=== PATIENT | female | born 1975 | race Caucasian/White ===

== ENCOUNTER 2022-06-20 02:40 | Emergency (ER) | payer OTHER, SELFPAY ==
[2022-06-20] MEDS: GI COCKTAIL (VISC LIDO/ANTACID) 30 ML PO (02:50)
[2022-06-20] MEDS: ONDANSETRON 2 MG/ML inj 4 MG IVP (02:50)
[2022-06-20 02:55] VITALS: BP 127/79; PULSE 82; RESP 18; TEMP 36.7; O2SAT 98; BMI 355.3
[2022-06-20] MEDS: FAMOTIDINE 10 MG/ML inj 20 MG IVP (02:55)
--- NOTE | 2022-06-20 02:58 | CRLHL7_ITS ---
For Patients: As a result of the Century Cures Act, medical imaging exams and procedure reports are released immediately into your electronic medical record. You may view this report before your referring provider. If you have questions, please contact your health care provider. INDICATION: epigastric pain TECHNIQUE: Ultrasound abdomen limited. Sonographic images of the right upper quadrant were obtained using zepeda-scale and color Doppler images. COMPARISON: None. FINDINGS: Liver: Normal in size with mildly increased echotexture. No suspicious masses. No intrahepatic biliary dilatation. Appropriate direction of blood flow of the portal vein. Gallbladder: Multiple gallstones. Gallbladder wall measures 2.6 mm. No pericholecystic fluid. Negative Valente sign. Common bile duct: 6 mm. Pancreas: Partially obscured by bowel gas artifact. Visualized portions of the body and head appear uniform. Right kidney: Normal in size. Normal echotexture and cortex. No suspicious masses, stones, or hydronephrosis. Vasculature: Proximal abdominal aorta and IVC are unremarkable. IMPRESSION: Cholelithiasis without evidence of acute cholecystitis. CBD upper limits of normal/borderline. Recommend correlation with LFTs if there is concern for obstructive process. Hepatic steatosis. Dictated by Terell Campos MD @ 06/20/2022 5:31:04 AM (Electronically Signed)
--- NOTE | 2022-06-20 03:00 | ED.GENADULT ---
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 Patient describes a history of ?gastritis? but said she has not had prior EGD or other testing for this. She takes omeprazole daily. Patient had worsened pain starting yesterday evening along with nausea, no vomiting. No diarrhea or dark colored stools. She has some medications from [place] which she took, these are IM injections of hyoscyamine and Toradol. She had minimal improvement this. She says sometimes when she gets the pain she takes ibuprofen as well. Prior section but no other surgeries. Related Data Home Medications Medication Instructions Recorded Confirmed No Known Home Medications 06/20/22 06/20/22 Previous Rx's Medication Instructions Recorded ondansetron 4 mg disintegrating 4 mg PO Q6H PRN nausea and 06/20/22 tablet vomiting #20 tabs sucralfate 1 gram tablet (Carafate) 1 g PO QID #28 tabs 06/20/22 Allergies Allergy/AdvReac Type Severity Reaction Status Date / Time No Known Drug Allergies Allergy Verified 06/20/22 03:19 Review of Systems Status of ROS: Reports: 10 or more systems reviewed and unremarkable except as noted in History and below [facility] PFS Medical History (Updated 06/20/22 @ 04:25 by Subhash Ambrose MD) Gastritis Surgical History (Updated 06/20/22 @ 03:15 by Rehan Peñaloza RN) No significant past surgical history Social History Smoking Status: Never smoker Do you use any of these nicotine containing products: None Second hand tobacco smoke exposure: No How often do you have a drink containing alcohol: never How often do you have six or more drinks on one occasion: Never AUDIT-C Alcohol total score: 0 Non-prescribed substance use: denies use Exam Narrative: Exam Narrative: General: Well-developed and well-nourished, no acute distress Head: Atraumatic and normocephalic Eyes: Pupils are equal reactive, extraocular motions intact, conjunctiva clear ENT: External nose and ears are normal, posterior pharynx without erythema or exudate Neck: No midline cervical tenderness, full spontaneous range of motion the neck, trachea midline, no adenopathy Heart: Regular rate and rhythm no murmurs or thrills Lungs: Clear to auscultation bilaterally without wheezes or crackles Abdomen: Soft, epigastric and right upper quadrant tenderness, nondistended with active bowel sounds Musculoskeletal: No tenderness, deformity, or edema Neurologic: Awake, alert, and oriented x3, no gross focal neurologic deficits, cranial nerves intact as tested Psych: Mood and affect are appropriate Skin: No rashes Const: Vital Signs, click to edit/add: Vital Signs - 24 hr 06/20/22 02:55 06/20/22 03:31 06/20/22 04:01 Temperature 98.0 F Pulse Rate 75 77 Pulse Rate [Right Pulse Oximeter] 82 Respiratory Rate 18 16 16 Blood Pressure 116/74 110/74 Blood Pressure [Ri ght Upper Arm] 127/79 Pulse Oximetry 98 96 98 Oxygen Delivery Me thod Room Air 06/20/22 02:55 06/20/22 04:23 06/20/22 04:31 Temperature 98.0 F Pulse Rate 68 Pulse Rate [Right Pulse Oximeter] 79 Respiratory Rate 16 16 Blood Pressure 120/82 Blood Pressure [Ri ght Upper Arm] 120/68 Pulse Oximetry 98 98 98 Oxygen Delivery Me thod Room Air 06/20/22 04:42 Temperature 98.0 F Pulse Rate Pulse Rate [Right Pulse Oximeter] 79 Respiratory Rate 16 Blood Pressure Blood Pressure [Ri ght Upper Arm] 120/68 Pulse Oximetry Oxygen Delivery Me thod Course Course Hospital Course: Patient seen examined, prior records are reviewed. Patient presents with upper abdominal pain, primarily epigastric but wraps around the back. On exam, he has epigastric and mild right upper quadrant tenderness, no left upper quadrant tenderness. Reports history of gastritis. Symptoms certainly seem consistent gastritis although concern also for acute cholecystitis or biliary colic. Labs and right upper quadrant ultrasound are ordered as well as Pepcid and GI cocktail. Reevaluation(s) Reevaluation #1: Labs independently interpreted by me demonstrates normal CBC with normal hemoglobin. Lipase is normal, buttock function panel and basic panel reassuring. Ultrasound is pending. Time: 03:42 Reevaluation #2: Ultrasound demonstrates gallstones but no findings for acute obstruction or acute cholecystitis. Patient is stable for discharge with outpatient follow-up. At time getting discharge instructions started complaining of a painful joints in the mornings. She can follow up with her primary care doctor. I did instruct her to avoid ibuprofen for now due to her gastritis. Time: 04:14 Vital Signs Vital signs: Initial Vital Signs Temperature 98.0 F 06/20/22 02:55 Temperature Source Temporal Artery Scan 06/20/22 02:55 Pulse Rate 82 06/20/22 02:55 Respiratory Rate 18 06/20/22 02:55 Blood Pressure 127/79 06/20/22 02:55 Blood Pressure Mean 95 06/20/22 02:55 Blood Pressure Position Sitting 06/20/22 02:55 Pulse Oximetry 98 06/20/22 02:55 Oxygen Delivery Method 06/20/22 02:55 Vital Signs Temperature 98.0 F 06/20/22 02:55 Pulse Rate 82 06/20/22 02:55 Respiratory Rate 18 06/20/22 02:55 Blood Pressure 127/79 06/20/22 02:55 Pulse Oximetry 98 06/20/22 02:55 Oxygen Delivery Method 06/20/22 02:55 Temperature 98.0 F 06/20/22 04:42 Pulse Rate 79 06/20/22 04:42 Respiratory Rate 16 06/20/22 04:42 Blood Pressure 120/68 06/20/22 04:42 Pulse Oximetry 98 06/20/22 04:31 Oxygen Delivery Method 06/20/22 04:23 Medical Decision Making Medical Records Medical records reviewed: Yes I reviewed the patient's medical records Lab Data Lab results reviewed: Yes I reviewed the patient's lab results Labs: Lab Results 06/20/22 06/20/22 Range/Units 03:05 03:05 WBC 9.71 (4.50-11.00) K/uL RBC 4.28 (4.00-5.20) m/uL Hgb 12.5 (12.0-16.0) gm/dL Hct 37.4 (33.0-51.0) % MCV 87 (80-100) fL MCH 29 (26-34) pg MCHC 33 (32-36) gm/dL RDW Coeff of Aniya 12.9 (11.5-15.5) % Plt Count 225 (140-440) K/uL Neut % (Auto) 75.4 H (42.0-72.0) % Lymph % (Auto) 17.2 L (20-44) % Giles % (Auto) 5.6 (0.0-11.0) % Eos % (Auto) 1.5 (0.0-7.0) % Baso % (Auto) 0.1 (0.0-3.0) % Neut # (Auto) 7.30 H (1.7-7.0) K/uL Lymph # (Auto) 1.70 (0.90-2.90) K/uL Giles # (Auto) 0.50 (0.00-0.90) K/UL Eos # (Auto) 0.15 (0.00-0.50) K/uL Baso # (Auto) 0.01 (0.00-0.30) K/uL Sodium 139 (135-149) mmol/L Potassium 4.7 (3.6-5.1) mmol/L Chloride 110 (96-114) mmol/L Carbon Dioxide 21 (20-32) mmol/L BUN 14 (5-24) mg/dL Creatinine 0.5 (0.5-1.5) mg/dL Estimated Creat Clear 110.01 Estimated GFR 116 ml/min Glucose 133 H (60-115) mg/dL Calcium 8.4 (8.4-10.6) mg/dL Total Bilirubin 0.8 (0.1-1.5) mg/dL Direct Bilirubin 0.5 (0.0-0.5) mg/dL AST 47 H (12-35) U/L ALT 29 (4-35) U/L Alkaline Phosphatase 82 (40-150) U/L Total Protein 7.9 (6.0-8.3) g/dL Albumin 4.2 (3.3-5.0) g/dL Lipase 69 (23-300) U/L Discharge Plan Discharge Clinical Impression: Gastritis Patient Disposition: Home, Self-Care Condition: Stable Instructions: Gastritis (DC) Additional Instructions: Avoid ibuprofen. Take Tylenol for pain. Follow-up in clinic next week- call [phone] for and appointment Continue omeprazole. Evite el ibuprofeno. [place] Tylenol para el dolor. Seguimiento en la cl?annabelle la pr?xima semana: llame al [phone] para leopoldo kimi Contin?e con omeprazol. Activity Level: No Restrictions Discharge Diet: Regular Prescriptions: New sucralfate [Carafate] 1 gram tablet 1 g PO QID Qty: 28 0RF ondansetron 4 mg tablet,disintegrating 4 mg PO Q6H PRN (Reason: nausea and vomiting) Qty: 20 0RF No Action No Known Home Medications Stand Alone Forms: MyHealth Info Instructions
[2022-06-20 03:14] LABS: Basophils Absolute Auto 0.01 K/uL (0.00-0.30); Basophils Percent Auto 0.1 % (0.0-3.0); Eosinophils Absolute Auto 0.15 K/uL (0.00-0.50); Eosinophils Percent Auto 1.5 % (0.0-7.0); Hematocrit 37.4 % (33.0-51.0); Hemoglobin* 12.5 gm/dL (12.0-16.0); Immature Granulocytes Abs Auto 0.02 K/uL (0.00-0.30); Immature Granulocytes Pct Auto 0.2 %; Lymphocytes Percent Auto 17.2 % (20-44); Mean Corpuscular HGB Conc 33 gm/dL (32-36); Mean Corpuscular Hemoglobin 29 pg (26-34); Mean Corpuscular Volume 87 fL (80-100); Monocytes Percent Auto 5.6 % (0.0-11.0); Neutrophils Percent Auto 75.4 % (42.0-72.0); Platelet Count* 225 K/uL (140-440); RDW Coefficient of Variation % 12.9 % (11.5-15.5); Red Blood Count 4.28 m/uL (4.00-5.20); White Blood Count* 9.71 K/uL (4.50-11.00)
[2022-06-20 03:15] LABS: Slide Review Reflex No
[2022-06-20 03:27] LABS: Albumin* 4.2 g/dL (3.3-5.0); Chloride* 110 mmol/L (96-114)
[2022-06-20 03:28] LABS: Potassium* 4.7 mmol/L (3.6-5.1); Sodium* 139 mmol/L (135-149)
[2022-06-20 03:30] LABS: Bilirubin Direct* 0.5 mg/dL (0.0-0.5); Bilirubin Total* 0.8 mg/dL (0.1-1.5); Blood Urea Nitrogen* 14 mg/dL (5-24); Carbon Dioxide* 21 mmol/L (20-32); Creatinine* 0.5 mg/dL (0.5-1.5); Est. Creatinine Clearance* 110.01; Estimated Glomerular Filt Rate 116 ml/min; Total Protein* 7.9 g/dL (6.0-8.3)
[2022-06-20 03:31] VITALS: BP 116/74; PULSE 75; RESP 16; O2SAT 96
[2022-06-20 03:31] LABS: Alanine Aminotransferase* 29 U/L (4-35); Alkaline Phosphatase* 82 U/L (40-150); Aspartate Amino Transferase* 47 U/L (12-35); Calcium* 8.4 mg/dL (8.4-10.6); Glucose* 133 mg/dL (60-115); Lipase* 69 U/L (23-300)
[2022-06-20 04:01] VITALS: BP 110/74; PULSE 77; RESP 16; O2SAT 98
[2022-06-20 04:23] VITALS: BP 120/68; PULSE 79; RESP 16; TEMP 36.7; O2SAT 98
[2022-06-20 04:31] VITALS: BP 120/82; PULSE 68; RESP 16; O2SAT 98
[2022-06-20 04:42] VITALS: BP 120/68; PULSE 79; RESP 16; TEMP 36.7
== END 2022-06-20 04:42 | disposition home or self-care (01) ==
PROVIDERS: Emergency Provider Family Medicine
DX: K29.70 Gastritis, unspecified, without bleeding (principal)
CPT/HCPCS: 36415; 76705; 80048; 80076; 83690; 85025; 94761; 96374; 96375; 99283; 99284; A9270; J2405; S0028

== ENCOUNTER 2022-06-21 20:25 | Day surgery (SDC) | payer OTHER, SELFPAY ==
[2022-06-21] VITALS (14 sets, daily range): BP systolic 119–132; BP diastolic 81–94; PULSE 77–86; RESP 18–20; TEMP 35.8; O2SAT 94–96
[2022-06-21] MEDS: HYDROCODONE-ACETAMIN 5-325 MG 1 TAB PO (21:05)
[2022-06-21 21:12] LABS: Basophils Absolute Auto 0.02 K/uL (0.00-0.30); Basophils Percent Auto 0.2 % (0.0-3.0); Eosinophils Absolute Auto 0.27 K/uL (0.00-0.50); Eosinophils Percent Auto 3.1 % (0.0-7.0); Hematocrit 34.7 % (33.0-51.0); Hemoglobin* 11.8 gm/dL (12.0-16.0); Immature Granulocytes Abs Auto 0.01 K/uL (0.00-0.30); Immature Granulocytes Pct Auto 0.1 %; Lymphocytes Absolute Auto 1.72 K/uL (0.90-2.90); Mean Corpuscular HGB Conc 34 gm/dL (32-36); Mean Corpuscular Hemoglobin 29 pg (26-34); Mean Corpuscular Volume 86 fL (80-100); Monocytes Percent Auto 7.1 % (0.0-11.0); Neutrophils Absolute Auto 5.96 K/uL (1.7-7.0); Neutrophils Percent Auto 69.5 % (42.0-72.0); Platelet Count* 264 K/uL (140-440); RDW Coefficient of Variation % 12.9 % (11.5-15.5); Red Blood Count 4.03 m/uL (4.00-5.20); White Blood Count* 8.59 K/uL (4.50-11.00)
[2022-06-21 21:22] LABS: Slide Review Reflex No
[2022-06-21 21:24] LABS: Albumin* 4.2 g/dL (3.3-5.0); Chloride* 104 mmol/L (96-114); Sodium* 136 mmol/L (135-149)
[2022-06-21 21:25] LABS: Potassium* 3.6 mmol/L (3.6-5.1)
[2022-06-21 21:26] LABS: Creatinine* 0.5 mg/dL (0.5-1.5); Estimated Glomerular Filt Rate 116 ml/min
[2022-06-21 21:27] LABS: Alanine Aminotransferase* 38 U/L (4-35); Alkaline Phosphatase* 91 U/L (40-150); Aspartate Amino Transferase* 45 U/L (12-35); Bilirubin Direct* 0.2 mg/dL (0.0-0.5); Bilirubin Total* 0.5 mg/dL (0.1-1.5); Blood Urea Nitrogen* 14 mg/dL (5-24); Carbon Dioxide* 25 mmol/L (20-32); Glucose* 158 mg/dL (60-115); Lipase* 152 U/L (23-300); Total Protein* 7.9 g/dL (6.0-8.3)
[2022-06-21 21:28] LABS: Calcium* 8.4 mg/dL (8.4-10.6)
--- NOTE | 2022-06-21 21:38 | ED_ITS ---
HPI - General Adult General Chief complaint: Abdominal Pain Stated complaint: stomach pain Time Seen by Provider: 06/21/22 20:27 Source: patient Mode of arrival: ambulatory Limitations: no limitations History of Present Illness HPI narrative: 46-year-old female coming in today complaining of abdominal pain. Patient states that the pain is located in the epigastric region radiates to the right upper quadrant. Patient was here yesterday with the same concern was sent home with Carafate and omeprazole. Patient states she has been taking the Carafate every 6 hours and the pain has been fine until 2 hours ago when it returned. The pain is strong enough to take her breath away. She denies any nausea or vomiting. No fevers or chills. She does believe that every time she eats her pain does get a little bit worse, and then subsides with time. During her evaluation yesterday she was found to have cholelithiasis without evidence of cholecystitis. She states she has been having this pain on and off for quite some time. Related Data Home Medications Medication Instructions Recorded Confirmed No Known Home Medications 06/20/22 06/20/22 Previous Rx's Medication Instructions Recorded ondansetron 4 mg disintegrating 4 mg PO Q6H PRN nausea and 06/20/22 tablet vomiting #20 tabs sucralfate 1 gram tablet (Carafate) 1 g PO QID #28 tabs 06/20/22 Allergies Allergy/AdvReac Type Severity Reaction Status Date / Time No Known Drug Allergies Allergy Verified 06/20/22 03:19 Review of Systems Status of ROS: Reports: 10 or more systems reviewed and unremarkable except as noted in History and below [facility] Medical History Gastritis Surgical History No significant past surgical history Social History Smoking Status: Never smoker Do you use any of these nicotine containing products: None Second hand tobacco smoke exposure: No How often do you have a drink containing alcohol: never How often do you have six or more drinks on one occasion: Never AUDIT-C Alcohol total score: 0 Non-prescribed substance use: denies use Exam Narrative: Exam Narrative: Well-nourished well-developed patient in no acute distress. Alert and oriented. Answers questions appropriately. Mood and affect are appropriate. Thoughts are goal oriented and rational. No tangential or magical thinking noted. Patient speaks in full sentences without needing to catch their breath. HEENT: Normocephalic atraumatic. Pupils are equally round reactive to light. Extraocular muscles are intact. Conjunctivae are moist without any icterus noted. Moist mucous membranes. Posterior pharynx is normal. Neck is soft . Cardiovascular: Heart is regular rate and rhythm S1 and S2 are present without any murmurs. Lungs: Clear to auscultation bilaterally no wheezes rhonchi or rales are appreciated. Patient takes deep breaths without any discomfort. Abdomen: Soft and nondistended. She does have mild epigastric discomfort. She has a positive Valente sign and acute right upper quadrant tenderness. Normal bowel sounds. Extremities: Bilateral lower extremities are without edema. Skin: Well perfused without any obvious rashes. Const: Vital Signs, click to edit/add: Vital Signs - 24 hr 06/21/22 20:34 Temperature 96.4 F L Pulse Rate [Left P ulse Oximeter] 82 Respiratory Rate 18 Blood Pressure [Le ft Upper Arm] 132/88 Pulse Oximetry 96 Oxygen Delivery Me thod Room Air Course Course Hospital Course: Did repeat her blood work to make sure that there was no evidence of developing cholecystitis or other abnormalities such as pancreatitis. Her lab work was unremarkable. Vital Signs Vital signs: Initial Vital Signs Temperature 96.4 F L 06/21/22 20:34 Temperature Source Temporal Artery Scan 06/21/22 20:34 Pulse Rate 82 06/21/22 20:34 Pulse Rhythm 06/21/22 20:34 Respiratory Rate 18 06/21/22 20:34 Blood Pressure 132/88 06/21/22 20:34 Blood Pressure Mean 102 06/21/22 20:34 Blood Pressure Position Semi-Fowlers 06/21/22 20:34 Pulse Oximetry 96 06/21/22 20:34 Oxygen Delivery Method 06/21/22 20:34 Vital Signs Temperature 96.4 F L 06/21/22 20:34 Pulse Rate 82 06/21/22 20:34 Respiratory Rate 18 06/21/22 20:34 Blood Pressure 132/88 06/21/22 20:34 Pulse Oximetry 96 06/21/22 20:34 Oxygen Delivery Method 06/21/22 20:34 Temperature 96.4 F L 06/21/22 20:34 Pulse Rate 82 06/21/22 20:34 Respiratory Rate 18 06/21/22 20:34 Blood Pressure 132/88 06/21/22 20:34 Pulse Oximetry 96 06/21/22 20:34 Oxygen Delivery Method 06/21/22 20:34 Medical Decision Making MDM Narrative Medical decision making narrative: 46-year-old female with epigastric and right upper quadrant abdominal pain, recurrent and after eating. I do think she needs to have an appointment with General surgery to discuss the potential of a cholecystectomy. In the meantime will send her home with hydrocodone to take as needed. We discussed bland diet. We discussed signs of infection reasons for follow-up. Patient was agreeable and had no other questions. Lab Data Lab results reviewed: Yes I reviewed the patient's lab results Labs: Lab Results 06/21/22 06/21/22 Range/Units 21:04 21:04 WBC 8.59 (4.50-11.00) K/uL RBC 4.03 (4.00-5.20) m/uL Hgb 11.8 L (12.0-16.0) gm/dL Hct 34.7 (33.0-51.0) % MCV 86 (80-100) fL MCH 29 (26-34) pg MCHC 34 (32-36) gm/dL RDW Coeff of Aniya 12.9 (11.5-15.5) % Plt Count 264 (140-440) K/uL Neut % (Auto) 69.5 (42.0-72.0) % Lymph % (Auto) 20.0 (20-44) % Norton % (Auto) 7.1 (0.0-11.0) % Eos % (Auto) 3.1 (0.0-7.0) % Baso % (Auto) 0.2 (0.0-3.0) % Neut # (Auto) 5.96 (1.7-7.0) K/uL Lymph # (Auto) 1.72 (0.90-2.90) K/uL Norton # (Auto) 0.60 (0.00-0.90) K/UL Eos # (Auto) 0.27 (0.00-0.50) K/uL Baso # (Auto) 0.02 (0.00-0.30) K/uL Sodium 136 (135-149) mmol/L Potassium 3.6 (3.6-5.1) mmol/L Chloride 104 (96-114) mmol/L Carbon Dioxide 25 (20-32) mmol/L BUN 14 (5-24) mg/dL Creatinine 0.5 (0.5-1.5) mg/dL Estimated GFR 116 ml/min Glucose 158 H (60-115) mg/dL Calcium 8.4 (8.4-10.6) mg/dL Total Bilirubin 0.5 (0.1-1.5) mg/dL Direct Bilirubin 0.2 (0.0-0.5) mg/dL AST 45 H (12-35) U/L ALT 38 H (4-35) U/L Alkaline Phosphatase 91 (40-150) U/L Total Protein 7.9 (6.0-8.3) g/dL Albumin 4.2 (3.3-5.0) g/dL Lipase 152 (23-300) U/L Discharge Plan Discharge Clinical Impression: Cholelithiasis Patient Disposition: Home, Self-Care Condition: Stable Additional Instructions: You will need to follow-up with general surgery to discuss getting your gallbladder removed. I do recommend that you eat a very bland diet in the meantime. Anything with fat such as animal products, fried foods, or butter can cause the gallbladder to contract more and can cause pain. If you develop vomiting, pain that does not get better with time or fever you should return to the emergency room right away. [facility] meds sent to [facility]. Prescriptions: No Action No Known Home Medications sucralfate [Carafate] 1 gram tablet 1 g PO QID Qty: 28 0RF ondansetron 4 mg tablet,disintegrating 4 mg PO Q6H PRN (Reason: nausea and vomiting) Qty: 20 0RF Follow Up/Referrals: Provider,Not a Local [Primary Care Provider] - Stand Alone Forms: MyHealth Info Instructions
[2022-06-21 21:41] LABS: C Reactive Protein* 18.1 mg/dL (0.5-1.0)
[2022-06-21] MEDS: HYDROmorphone 0.5 mg/0.5 ml inj IVP ×2 (22:24→22:47)
[2022-06-21 22:43] LABS: SARS PCR* Negative SARS-CoV-2 (Negative)
--- NOTE | 2022-06-21 22:52 | P.IMHP_ITS ---
Hospitalist- H&P: HPI History of Present Illness Date Seen: 06/21/22 Chief complaint: stomach pain Narrative: Awilda Kang is a 46 year old female who presents to emergency room with her for persistent epigastric pain that radiates into bilateral upper quadrants of the abdomen. She has noted this pain on and off for quite some time, it has been more persistent in the past 48 hours. Pain is worse after eating and drinking, no other alleviating or aggravating factors. No fevers. No itching or skin rashes. Intermittent nausea but no vomiting. She was seen in the ED yesterday, started on medications for gastritis, but symptoms persisted. She was found to have gallstones on abdominal ultrasound yesterday. In the ED, she required IV Dilaudid for pain control. Given persistent symptoms, in addition to elevated CRP today, she's admitted to the hospital for cholecystectomy with Dr. Caal of General Surgery tomorrow. Awilda is from [place], has been in [place] for the past 6 months. She is generally healthy and takes no daily prescription medications. She has had 3 C-Sections, no other surgeries. Review of Systems Status of ROS: Reports: 10 or more systems reviewed and unremarkable except as noted in History and below [facility] Medical History (Updated 06/21/22 @ 23:05 by Patti Pedraza MD) Gastritis Surgical History (Updated 06/21/22 @ 23:01 by Patti Pedraza MD) History of section No significant past surgical history Social History (Updated 06/21/22 @ 23:06 by Patti Pedraza MD) Narrative: Originally from [place], 3 children. Lives with in [place]. Nonsmoker, no ETOH. Smoking Status: Never smoker Do you use any of these nicotine containing products: None Second hand tobacco smoke exposure: No How often do you have a drink containing alcohol: never How often do you have six or more drinks on one occasion: Never AUDIT-C Alcohol total score: 0 Non-prescribed substance use: denies use Meds Home Medications and Allergies Home Medications Medication Instructions Recorded Confirmed Type No Known Home Medications 06/20/22 06/20/22 History Allergies Allergy/AdvReac Type Severity Reaction Status Date / Time No Known Drug Allergies Allergy Verified 06/20/22 03:19 Exam Narrative: Exam Narrative: GEN: Alert and oriented, nontoxic in appearance HEENT: EOMIs bilaterally, no scleral icterus CV: RRR, No concerning murmurs, rubs, or gallops R: LCTA bilaterally without concerning wheezing, rales, or rhonchi Ab: + tenderness to palpation over right upper quadrant, no masses Ext: wwp, no concerning edema Skin: No concerning skin lesions or rashes on exposed skin Neuro: Nonfocal Psych: Appropriate Const: Vital Signs, click to edit/add: Vital Signs - 24 hr 06/21/22 20:34 06/21/22 21:44 06/21/22 21:45 Temperature 96.4 F L Pulse Rate 78 81 Pulse Rate [Left P ulse Oximeter] 82 Respiratory Rate 18 Blood Pressure Blood Pressure [Le ft Upper Arm] 132/88 Pulse Oximetry 96 95 94 Oxygen Delivery [facility] Room Air Room Air 06/21/22 22:00 06/21/22 22:03 06/21/22 22:15 Temperature Pulse Rate 80 79 77 Pulse Rate [Left P ulse Oximeter] Respiratory Rate Blood Pressure 122/94 H Blood Pressure [Le ft Upper Arm] Pulse Oximetry 96 95 [facility] 06/21/22 22:30 Temperature Pulse Rate 79 Pulse Rate [Left P ulse Oximeter] Respiratory Rate Blood Pressure Blood Pressure [Le ft Upper Arm] Pulse Oximetry 95 [facility] - H&P: Result Labs Labs: Short CBC 06/21/22 Range/Units 21:04 WBC 8.59 (4.50-11.00) K/uL Hgb 11.8 L (12.0-16.0) gm/dL Hct 34.7 (33.0-51.0) % Plt Count 264 (140-440) K/uL BMP 06/21/22 21:04 Sodium 136 Potassium 3.6 Chloride 104 Carbon Dioxide 25 BUN 14 Creatinine 0.5 Glucose 158 H Calcium 8.4 Liver Function 06/21/22 Range/Units 21:04 Total Bilirubin 0.5 (0.1-1.5) mg/dL Direct Bilirubin 0.2 (0.0-0.5) mg/dL AST 45 H (12-35) U/L ALT 38 H (4-35) U/L Alkaline Phosphatase 91 (40-150) U/L Albumin 4.2 (3.3-5.0) g/dL Assessment and Plan Assessment and plan (1) Cholelithiasis: Problem comment: - repeat abdominal ultrasound in the morning, then plan on surgery with Dr. Caal - NPO at midnight, pain control - afebrile with normal WBC Status: Acute Plan - per above - updated at bedside, questions answered
[2022-06-21] MEDS: ONDANSETRON 2 MG/ML inj 4 MG IVP (23:05)
[2022-06-21] MEDS: 0.9 % SODIUM CHLORIDE 1000 ml 1,000 ML 75 ML IV (23:11)
[2022-06-21] MEDS: PANTOPRAZOLE SODIUM 40 MG INJ IV (23:12)
[2022-06-22] VITALS (11 sets, daily range): BP systolic 100–151; BP diastolic 66–90; PULSE 77–107; RESP 14–22; TEMP 36.6–38.2; O2SAT 89–98
[2022-06-22] MEDS: HYDROmorphone 0.5 mg/0.5 ml inj IVP ×7 (01:58→21:21)
[2022-06-22] MEDS: ONDANSETRON 2 MG/ML inj 4 MG IVP ×3 (05:57→21:29)
--- NOTE | 2022-06-22 06:06 | PC.NURSE ---
Pt came to Floor @ 2320. Burkinan speaking. speaks Bengali. Pain controlled. Nausea controlled. NPO since arrival. Up IND in room. Voiding. Awaiting Sx @ 11:30.
--- NOTE | 2022-06-22 07:00 | CRLHL7_ITS ---
For Patients: As a result of the Century Cures Act, medical imaging exams and procedure reports are released immediately into your electronic medical record. You may view this report before your referring provider. If you have questions, please contact your health care provider. INDICATION: Right upper quadrant abdomen pain. TECHNIQUE: Ultrasound abdomen limited. Sonographic images of the right upper quadrant were obtained using zepeda-scale and color Doppler images. COMPARISON: Ultrasound 06/20/22 FINDINGS: Liver: Normal in size with slightly increased echotexture. No suspicious masses. No intrahepatic biliary dilatation. Gallbladder: Numerous gallstones are noted within the gallbladder. There is gallbladder wall thickening measuring up to 4 mm. Suspect trace pericholecystic fluid. Negative ultrasound Valente`s sign. Findings are suspicious for acute cholecystitis. Common bile duct: Increased dilatation of the CBD measuring 8.5 mm, previously 6 mm on exam from June 20, 2022. Pancreas: Obscured by bowel gas artifact. Right kidney: Normal in size. Normal echotexture and cortex. No suspicious masses, stones, or hydronephrosis. Vasculature: Proximal abdominal aorta and IVC are unremarkable. IMPRESSION: Numerous gallstones are noted within the gallbladder. There is gallbladder wall thickening measuring up to 4 mm. Suspect trace pericholecystic fluid. Negative ultrasound Valente`s sign. Findings are suspicious for acute cholecystitis. Increased dilatation of the CBD measuring 8.5 mm, previously 6 mm on exam from June 20, 2022. Recommend correlation with LFTs and consider MRCP if there is concern for biliary obstruction. Mild hepatic steatosis. Dictated by Terell Campos MD @ 06/22/2022 8:02:54 AM (Electronically Signed)
[2022-06-22] MEDS: SODIUM CHLORIDE 0.9 % (FLUSH) 10 ML SYRINGE 5 ML IVF (09:31)
--- NOTE | 2022-06-22 11:17 | PM.GSCN ---
History of Present Illness Consult details Date Seen: 06/22/22 Consult date: 06/22/22 Narrative: Patient is Irish-speaking primarily. She was interviewed with a video per diem interpreter. She presented to the emergency department last night with 48 hours of epigastric/right upper quadrant abdominal pain. She has had pain like this before. She presented to the ED emergency department the day earlier and was diagnosed with gastritis with abdominal ultrasound demonstrating gallstones at that time. She was prescribed some medication for her stomach, however despite using this the pain did not get better and worsened. Her surgical history is positive x3. She denies any previous problems with anesthesia, bleeding or blood clots. Review of Systems Status of ROS: Reports: 6 or more systems reviewed and unremarkable except as noted in History and below [facility] Medical History (Updated 06/22/22 @ 11:20 by Tamra Caal MD) Gastritis Surgical History (Updated 06/21/22 @ 23:01 by Patti Pedraza MD) History of section No significant past surgical history Social History (Updated 06/21/22 @ 23:06 by Patti Pedraza MD) Narrative: Originally from [place], 3 children. Lives with in [place]. Nonsmoker, no ETOH. Smoking Status: Never smoker Do you use any of these nicotine containing products: None Second hand tobacco smoke exposure: No How often do you have a drink containing alcohol: never How often do you have six or more drinks on one occasion: Never AUDIT-C Alcohol total score: 0 Non-prescribed substance use: denies use Meds Home Medications and Allergies Home Medications Medication Instructions Recorded Confirmed Type No Known Home Medications 06/20/22 06/20/22 History Allergies Allergy/AdvReac Type Severity Reaction Status Date / Time No Known Drug Allergies Allergy Verified 06/20/22 03:19 Exam Narrative: Exam Narrative: General: Alert and oriented, no acute distress. Respiratory: Equal breath rise bilaterally, maintained on room air CV: Regular rhythm rate, well perfused Abdomen: Soft, tender to palpation epigastric with some guarding. Const: Vital Signs, click to edit/add: Vital Signs - 24 hr 06/21/22 20:34 06/21/22 21:44 06/21/22 21:45 Temperature 96.4 F L Pulse Rate 78 81 Pulse Rate [Left P ulse Oximeter] 82 Pulse Rate [Left R adial] Respiratory Rate 18 Blood Pressure Blood Pressure [Le ft Arm] Blood Pressure [Le ft Upper Arm] 132/88 Pulse Oximetry 96 95 94 Oxygen Delivery Me thod Room Air Room Air 06/21/22 22:00 06/21/22 22:03 06/21/22 22:15 Temperature Pulse Rate 80 79 77 Pulse Rate [Left P ulse Oximeter] Pulse Rate [Left R adial] Respiratory Rate Blood Pressure 122/94 H Blood Pressure [Le ft Arm] Blood Pressure [Le ft Upper Arm] Pulse Oximetry 96 95 95 Oxygen Delivery Me thod 06/21/22 22:30 06/21/22 21:06 06/21/22 22:36 Temperature Pulse Rate 79 86 78 Pulse Rate [Left P ulse Oximeter] Pulse Rate [Left R adial] Respiratory Rate 20 Blood Pressure 125/89 Blood Pressure [Le ft Arm] Blood Pressure [Le ft Upper Arm] Pulse Oximetry 95 94 94 Oxygen Delivery Me thod 06/21/22 22:45 06/21/22 23:00 06/21/22 23:05 Temperature Pulse Rate 84 80 80 Pulse Rate [Left P ulse Oximeter] Pulse Rate [Left R adial] Respiratory Rate Blood Pressure Blood Pressure [Le ft Arm] Blood Pressure [Le ft Upper Arm] Pulse Oximetry 94 95 94 Oxygen Delivery Me thod 06/21/22 23:31 06/21/22 23:47 06/22/22 03:00 Temperature 96.4 F L 96.4 F L 98 F Pulse Rate Pulse Rate [Left P ulse Oximeter] Pulse Rate [Left R adial] 79 79 77 Respiratory Rate 18 18 16 Blood Pressure Blood Pressure [Le ft Arm] 119/81 119/81 114/75 Blood Pressure [Le ft Upper Arm] Pulse Oximetry 94 94 93 Oxygen Delivery Me thod Room Air Room Air Room Air 06/22/22 07:00 06/22/22 08:00 Temperature 100.8 F H Pulse Rate Pulse Rate [Left P ulse Oximeter] Pulse Rate [Left R adial] 101 H Respiratory Rate 16 16 Blood Pressure Blood Pressure [Le ft Arm] 112/75 Blood Pressure [Le ft Upper Arm] Pulse Oximetry 98 98 Oxygen Delivery Me thod Room Air Room Air Results Labs Labs: Abnormal lab results 06/21/22 06/21/22 Range/Units 21:04 21:04 Hgb 11.8 L (12.0-16.0) gm/dL Glucose 158 H (60-115) mg/dL AST 45 H (12-35) U/L ALT 38 H (4-35) U/L C-Reactive Protein 18.1 H (0.5-1.0) mg/dL Diabetes panel 06/21/22 Range/Units 21:04 Sodium 136 (135-149) mmol/L Potassium 3.6 (3.6-5.1) mmol/L Chloride 104 (96-114) mmol/L Carbon Dioxide 25 (20-32) mmol/L BUN 14 (5-24) mg/dL Creatinine 0.5 (0.5-1.5) mg/dL Glucose 158 H (60-115) mg/dL Calcium 8.4 (8.4-10.6) mg/dL AST 45 H (12-35) U/L ALT 38 H (4-35) U/L Alkaline Phosphatase 91 (40-150) U/L Total Protein 7.9 (6.0-8.3) g/dL Albumin 4.2 (3.3-5.0) g/dL Calcium panel 06/21/22 Range/Units 21:04 Calcium 8.4 (8.4-10.6) mg/dL Albumin 4.2 (3.3-5.0) g/dL Pituitary panel 06/21/22 Range/Units 21:04 Sodium 136 (135-149) mmol/L Potassium 3.6 (3.6-5.1) mmol/L Chloride 104 (96-114) mmol/L Carbon Dioxide 25 (20-32) mmol/L BUN 14 (5-24) mg/dL Creatinine 0.5 (0.5-1.5) mg/dL Glucose 158 H (60-115) mg/dL Calcium 8.4 (8.4-10.6) mg/dL Adrenal panel 06/21/22 Range/Units 21:04 Sodium 136 (135-149) mmol/L Potassium 3.6 (3.6-5.1) mmol/L Chloride 104 (96-114) mmol/L Carbon Dioxide 25 (20-32) mmol/L BUN 14 (5-24) mg/dL Creatinine 0.5 (0.5-1.5) mg/dL Glucose 158 H (60-115) mg/dL Calcium 8.4 (8.4-10.6) mg/dL Total Bilirubin 0.5 (0.1-1.5) mg/dL AST 45 H (12-35) U/L ALT 38 H (4-35) U/L Alkaline Phosphatase 91 (40-150) U/L Total Protein 7.9 (6.0-8.3) g/dL Albumin 4.2 (3.3-5.0) g/dL All other labs normal. Imaging Abdominal ultrasound report/results: report reviewed and image reviewed Assessment and Plan Assessment and plan (1) Acute cholecystitis: Status: Acute Plan Patient is a 46-year-old female with clinical history and workup consistent with acute cholecystitis. A repeat abdominal ultrasound was performed this morning, which demonstrated gallbladder wall thickening, pericholecystic fluid and an increase in dilation of the common bile duct. Her liver panel is significant for mild elevation ALT/AST. I had a detailed conversation with the patient regarding the diagnosis of acute cholecystitis and choledocholithiasis. We discussed the treatment options including observation with diet modification and laparoscopic cholecystectomy. We discussed the risks of surgery (including but not limited to) the risks of bleeding, infection, injury to other structures in the abdomen including bile duct injury, bile leak and conversion to an open operation. We discussed the possibility that the patient's pain not improve with surgery. We discussed the possibility of permanent post-operative diarrhea that may require medical management. Additionally, the conceivably of complications requiring additional surgery or further hospitalization were also discussed including the risks of NC, respiratory failure, stroke and blood clots. The patient voiced an understanding of our conversation, had the opportunity to ask questions, agreed to accept the risks of surgery and asked that we proceed with surgery. I also reviewed with the patient the rationale for an intraoperative cholangiogram and the possibility of needing additional procedures if stones are present in the common bile duct. -OR for laparoscopic cholecystectomy and intraoperative cholangiogram
[2022-06-22] MEDS: LACTATED RINGERS 1000 ML 1,000 ML 75 ML IV ×2 (11:26→15:09)
[2022-06-22] MEDS: PIPERACILLIN/TAZOBACTAM 3.375 GM in 0.9 % SODIUM CHLORIDE Mini-bag 100 ML IVPB (11:34)
[2022-06-22] MEDS: BUPIVACAINE 0.25% 30 ML INJECTION (13:54)
--- NOTE | 2022-06-22 14:01 | PM.GSPRC ---
Operative Note Date of procedure: 06/22/22 Pre-op diagnosis: Acute cholecystitis Post-op diagnosis: Same, hydrops of gallbladder Type of Procedure: Laparoscopic cholecystectomy Indications: Patient is a 46-year-old female who presented to the emergency department with a history and workup consistent with acute cholecystitis. Risks and benefits of operative intervention were discussed at length with the patient. Risks included but was not limited to: Bleeding, infection, risk of damage to surrounding structures, possible need for additional procedures, possible need to convert to an open operation and postoperative complications such as pneumonia, pulmonary emboli or [place]. All questions and concerns were addressed with the patient agreeing to proceed. We also discussed the need for possible intraoperative cholangiogram, given her dilated common bile duct and mild elevation in transaminases. Procedure Description: After discussing the risks and benefits of the procedure, the patient signed informed consent.? The operative site was marked and the patient was brought to the operating room and placed on the operating table in supine position.? Care was taken to pad the patient's pressure points.?? The patient was then intubated by anesthesia.?? The operative site was then prepped and draped in the usual sterile fashion.? A time-out was then performed. Entrance to the abdomen was gained via a 5 mm Visiport in the left upper quadrant. The abdomen was insufflated and briefly surveyed for signs of injury. There was none. 11 mm umbilical port was placed as well as 2 working ports along the right costal margin. Patient was then placed in reverse Trendelenburg position with the right side up. The gallbladder fundus was distended and difficult to grasp secondary to edema. A laparoscopic needle was used to decompress the gallbladder, with evidence of hydrops. Once decompressed the fundus was grasped and retracted cephalad. [A small amount of dissection was needed to free omental adhesions from the gallbladder.] The infundibulum was then able to be grasped and retracted. Again the tissues were very edematous and [place] in appearance. During dissection the tissues were also very friable resulting in a moderate amount of bleeding. Several 5 mm clips were used to stop him point arterial bleeding along the rind of the gallbladder. A combination of hook cautery and blunt dissection was used to carefully dissect out the cystic duct and artery until they could clearly be seen entering the gallbladder without any intervening structures. The gallbladder was dissected off the cystic plate to achieve the critical view. Once this was achieved the cystic artery was clipped with 2 clips proximally and 1 clip distally and transected with the scissors. The cystic duct was dilated and unable to be ligated by 5 mm clips. The cystic duct was transected with laparoscopic scissors and ligation ensured with an 0 Vicryl endoloop. The gallbladder was then taken off of the liver bed. This dissection was made difficult again secondary to the amount of edema and inflammation present. Once removed it was placed in an Endo-Catch bag And removed from the abdomen. The gallbladder bed was surveyed for hemostasis. There was no active bleeding identified. Aisha was placed within the gallbladder fossa. The small amount of bile and blood within the abdomen was irrigated and suctioned. The ports were then removed under direct vision. The umbilical port fascia was closed with 0 Vicryl. The skin was closed with absorbable subcuticular suture. Instrument sponge and needle counts were correct at the end of the case. The patient was then woken and transferred to the PACU in stable condition. ? Findings: Distended, edematous gallbladder with evidence of hydrops. Anesthesia: GETA Surgeon: Tamra Caal MD Estimated blood loss (mL): 150 Specimen: Gallbladder Condition: stable Disposition: PACU
--- NOTE | 2022-06-22 15:14 | W.ANESCHARGE ---
Anesthesia Charges Start Date/Time Anesthesia Start Date: 06/22/22 Anesthesia Start Time: 11:26 Stop Date/Time Anesthesia Stop Date: 06/22/22 Anesthesia Stop Time: 14:13
--- NOTE | 2022-06-22 16:25 | PM.IMPN1 ---
Progress Note: A&P Assessment and plan (1) Cholelithiasis: Problem details: - repeat abdominal ultrasound in the morning, then plan on surgery with Dr. Caal - NPO at midnight, pain control - afebrile with normal WBC Status: Acute (2) Gastritis: Status: Acute (3) Hydrops of gallbladder: Status: Acute Plan 1. Patient is stable postoperatively. 2. I do not anticipate that the hospitalist will need to continue to follow this patient hereafter. For now I will sign off and if Dr. Caal requires additional help from the hospitalist will be happy to assist. Time Spent With Patient Total time spent: 30 minutes Subjective Time Seen by Provider: 08:00 Date Seen: 06/22/22 Interval history: Hospital day 2. Patient speaks only [place]. I speak with her through a power checker. 46-year-old woman with symptomatic cholelithiasis. Benefitting from supportive efforts including NPO status, IV fluids, analgesics, antiemetics. Denies chest heaviness, pressure, tightness, or pain. Denies cough, dyspnea at rest, paroxysmal nocturnal dyspnea, orthopnea. Denies syncope or near-syncope. Nausea improved with antiemetic. No vomiting at this time. Abdominal discomfort improved with opioid analgesics. No palpitations or chest fluttering. No edema of lower extremities or claudication. Denies polyuria, polydipsia, polyphagia. Never been told the past that she has diabetes. Postoperatively patient is doing well. Surgery undertaken successfully. Also found to have hydrops of the gallbladder. Exam Narrative: Exam Narrative: Appears scared and anxious. Friendly, articulate, cooperative. Mood and affect are congruent. Alert and oriented to self, place, time, situation. Neck is supple. Midline trachea. Lungs are clear to auscultation. Heart tones with regular rhythm. Abdomen with active bowel sounds. Subjective discomfort to palpation in the epigastrium. No rebound. Extremities without edema. Range of motion of joints of upper and lower extremities is full. Skin is warm, dry, intact. No rashes, petechiae, jaundice, or cyanosis. No focal motor neurologic deficits. No tremor, asterixis, or ataxia. Const: Vital Signs, click to edit/add: Vital Signs - 24 hr 06/21/22 20:34 06/21/22 21:44 06/21/22 21:45 Temperature 96.4 F L Pulse Rate 78 81 Pulse Rate [Left P ulse Oximeter] 82 Pulse Rate [Left R adial] Respiratory Rate 18 Blood Pressure Blood Pressure [Le ft Arm] Blood Pressure [Le ft Upper Arm] 132/88 Pulse Oximetry 96 95 94 [facility] 06/21/22 22:00 06/21/22 22:03 06/21/22 22:15 Temperature Pulse Rate 80 79 77 Pulse Rate [Left P ulse Oximeter] Pulse Rate [Left R adial] Respiratory Rate Blood Pressure 122/94 H Blood Pressure [Le ft Arm] Blood Pressure [Le ft Upper Arm] Pulse Oximetry 96 95 95 Oxygen Delivery Me od 06/21/22 22:30 06/21/22 21:06 06/21/22 22:36 Temperature Pulse Rate 79 86 78 Pulse Rate [Left P ulse Oximeter] Pulse Rate [Left R adial] Respiratory Rate 20 Blood Pressure 125/89 Blood Pressure [Le ft Arm] Blood Pressure [Le ft Upper Arm] Pulse Oximetry 95 94 94 [facility] 06/21/22 22:45 06/21/22 23:00 06/21/22 23:05 Temperature Pulse Rate 84 80 80 Pulse Rate [Left P ulse Oximeter] Pulse Rate [Left R adial] Respiratory Rate Blood Pressure Blood Pressure [Le ft Arm] Blood Pressure [Le ft Upper Arm] Pulse Oximetry 94 95 94 [facility] 06/21/22 23:31 06/21/22 23:47 06/22/22 03:00 Temperature 96.4 F L 96.4 F L 98 F Pulse Rate Pulse Rate [Left P ulse Oximeter] Pulse Rate [Left R adial] 79 79 77 Respiratory Rate 18 18 16 Blood Pressure Blood Pressure [Le ft Arm] 119/81 119/81 114/75 Blood Pressure [Le ft Upper Arm] Pulse Oximetry 94 94 93 [facility] Room Air Room Air 06/22/22 07:00 06/22/22 08:00 06/22/22 14:30 Temperature 100.8 F H 98.3 F Pulse Rate Pulse Rate [Left P ulse Oximeter] Pulse Rate [Left R adial] 101 H 92 Respiratory Rate 16 16 16 Blood Pressure Blood Pressure [Le ft Arm] 112/75 Blood Pressure [Le ft Upper Arm] 151/90 H Pulse Oximetry 98 98 92 Oxygen Delivery Me thod Room Air Room Air Room Air Documenting provider has reviewed patient's vital signs: yes Labs Labs: Laboratory Results - last 24 hr 06/21/22 06/21/22 06/21/22 21:04 21:04 22:00 WBC 8.59 RBC 4.03 Hgb 11.8 L Hct 34.7 MCV 86 MCH 29 MCHC 34 RDW Coeff of Aniya 12.9 Plt Count 264 Neut % (Auto) 69.5 Lymph % (Auto) 20.0 [place] % (Auto) 7.1 Eos % (Auto) 3.1 Baso % (Auto) 0.2 Neut # (Auto) 5.96 Lymph # (Auto) 1.72 [place] # (Auto) 0.60 Eos # (Auto) 0.27 Baso # (Auto) 0.02 Sodium 136 Potassium 3.6 Chloride 104 Carbon Dioxide 25 BUN 14 Creatinine 0.5 Estimated GFR 116 Glucose 158 H Calcium 8.4 Total Bilirubin 0.5 Direct Bilirubin 0.2 AST 45 H ALT 38 H Alkaline Phosphatase 91 C-Reactive Protein 18.1 H Total Protein 7.9 Albumin 4.2 Lipase 152 SARS-CoV-2 (PCR) Negative SARS-CoV-2
[2022-06-22] MEDS: OXYCODONE 5 MG TABLET PO ×2 (18:39→23:49)
--- NOTE | 2022-06-22 19:41 | PC.NURSE ---
shift note: pt to surgery @ 1130 via bed. pt returned approx 1430. pt has intact lap sites x4 to abd. ice applied to abd for comfort. BS hypo x4. pt tolerating clrs. pt medicated for pain and nausea on initial arrival from PACU. LS clr. IS to 1000. post op vitals in process. IV patent. No void after surgery. pt ambulated 150ft. No flatus. pt sat in chair approx 1.5 hrs.
[2022-06-22] MEDS: PANTOPRAZOLE SODIUM 40 MG INJ IVP (23:33)
[2022-06-23 03:00] VITALS: BP 100/68; PULSE 106; RESP 16; TEMP 36.8; O2SAT 91
[2022-06-23] MEDS: HYDROmorphone 0.5 mg/0.5 ml inj IVP (04:26)
[2022-06-23 06:35] LABS: Basophils Absolute Auto 0.03 K/uL (0.00-0.30); Basophils Percent Auto 0.4 % (0.0-3.0); Eosinophils Absolute Auto 0.03 K/uL (0.00-0.50); Eosinophils Percent Auto 0.4 % (0.0-7.0); Hemoglobin* 10.5 gm/dL (12.0-16.0); Immature Granulocytes Abs Auto 0.02 K/uL (0.00-0.30); Immature Granulocytes Pct Auto 0.2 %; Lymphocytes Percent Auto 19.1 % (20-44); Mean Corpuscular HGB Conc 34 gm/dL (32-36); Mean Corpuscular Hemoglobin 30 pg (26-34); Mean Corpuscular Volume 87 fL (80-100); Monocytes Percent Auto 8.6 % (0.0-11.0); Neutrophils Absolute Auto 5.79 K/uL (1.7-7.0); Neutrophils Percent Auto 71.3 % (42.0-72.0); Platelet Count* 266 K/uL (140-440); RDW Coefficient of Variation % 13.3 % (11.5-15.5); Red Blood Count 3.56 m/uL (4.00-5.20); White Blood Count* 8.12 K/uL (4.50-11.00)
[2022-06-23 06:56] LABS: Slide Review Reflex No
[2022-06-23 07:10] LABS: Albumin* 3.5 g/dL (3.3-5.0)
[2022-06-23 07:12] LABS: Bilirubin Direct* 0.2 mg/dL (0.0-0.5); Bilirubin Total* 0.7 mg/dL (0.1-1.5); Total Protein* 6.8 g/dL (6.0-8.3)
[2022-06-23 07:13] LABS: Alanine Aminotransferase* 86 U/L (4-35); Alkaline Phosphatase* 94 U/L (40-150); Aspartate Amino Transferase* 88 U/L (12-35)
--- NOTE | 2022-06-23 07:27 | PC.NURSE ---
END OF SHIFT NOTE: ROMANIAN SPEAKING ? 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 PT PLEASANT AND COOPERATIVE. LAP SITES SYDNI. DENIES?CP, SOB, N/V. AMBULATES SBA. SON STAYED THE NIGHT AT BEDSIDE. CALL LIGHT WITHIN PT?S REACH. PT RATES ABD DISCOMFORT 5-7 WITH RELIEF FROM SPLINTING, ICE PACK AND PAIN MEDS (SEE eMAR).
[2022-06-23 07:48] VITALS: BP 103/75; PULSE 109; RESP 16; TEMP 37.3; O2SAT 100
--- NOTE | 2022-06-23 08:30 | PC.NURSE ---
Blood glucose 116. None ordered but pt has diabetes.
[2022-06-23] MEDS: OXYCODONE 5 MG TABLET PO ×2 (09:11→10:12)
[2022-06-23] MEDS: ACETAMINOPHEN 325 MG TABLET 650 MG PO (09:13)
[2022-06-23] MEDS: DOCUSATE SODIUM 100 MG CAPSULE PO (09:13)
[2022-06-23 10:01] VITALS: O2SAT 100
[2022-06-23] MEDS: KETOROLAC 15 MG/ML inj IVP (10:11)
[2022-06-23 11:40] VITALS: BP 90/62; PULSE 97; RESP 16; TEMP 37.1; O2SAT 96
[2022-06-23 11:56] VITALS: BP 122/94; PULSE 94; RESP 16; TEMP 37.1
--- NOTE | 2022-06-23 13:33 | PC.NURSE ---
Patient was discharged home with spouse. Pain was controlled with PO medication. Tolerating a regular diet. PIV taken out and catheter intact. Lung sounds clear. Bowel sounds active. Incisions clean, dry and intact. Ambulating without difficulty. Reviewed instructions with cotton presser present. Left via wheelchair with family.
--- NOTE | 2022-07-01 11:38 | SUR.PHASEI ---
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 Unfamiliar with charting, reviewed for complete documentation.
== END 2022-06-23 13:37 | disposition home or self-care (01) ==
LOC: ED 21:44 → SS 22:39 → MEDSURG 23:20
PROVIDERS: Emergency Provider Family Medicine; Visit Provider Surgery
PROC: 0FT44ZZ Resection of Gallbladder, Percutaneous Endoscopic Approach (ICD-10-PCS; CPT 47562; 2022-06-22 10:30)
DX: K80.00 Calculus of gallbladder with acute cholecystitis without obstruction (principal); K82.1 Hydrops of gallbladder; K29.00 Acute gastritis without bleeding
CPT/HCPCS: 47562; 00790; 36415; 76705; 80048; 80076; 82962; 83690; 84703; 85025; 86140; 87635; 88304; 93005; 99284; 99285; T1013; A9270; C9113; J0330; J1170; J1885; J2250; J2405; J2543; J2704; J2710; J3010; J3490; J7030; J7120

== ENCOUNTER 2023-06-16 09:18 | Emergency (ER) | payer BC, SELFPAY ==
[2023-06-16 09:27] VITALS: BP 113/82; PULSE 87; RESP 16; TEMP 36.6; O2SAT 98; BMI 31.9
--- NOTE | 2023-06-16 09:44 | ED.GENADULT ---
HPI - General Adult General Date Seen: 06/16/23 Chief complaint: Headache/Migraine Stated complaint: headaches Time Seen by Provider: 06/16/23 09:40 History of Present Illness HPI narrative: History limited by language barrier. History is obtained using a Kazakh-hr administrative assistant. 47-year-old female presenting to the ER today for headaches, but he ache, along with cough, nasal congestion fever. Was reported they were exposed influenza last week. Her co-worker and her daughter are positive for influenza. She has been sick with mild flu symptoms beginning last week. She has been worse since Thursday. She has had symptoms of nasal congestion, body aches, mild cough. No shortness of breath. No chest pain. She has had headache. She has been fatigued. She has been trying to take krts-geg-dyvglhn acetaminophen which is not helpful. She has also been taking some jtqu-hip-zhcucte arthritis medication (ibuprofen? ) That is been somewhat more helpful but still not helping a lot. She is having a lot of headache and back ache. She came to the ER today with her who is also sick but has milder symptoms. She is otherwise healthy. No known history of underlying cardiovascular disease, high blood pressure, asthma, diabetes. She does note that she has had some joint aches for the past couple of years ever since she had her COVID shots. She does not have a diagnosis of underlying arthritis or RA, or autoimmune disease. Related Data Home Medications Medication Instructions Recorded Confirmed No Known Home Medications 06/16/23 06/16/23 Previous Rx's Medication Instructions Recorded hydrocodone 5 mg-acetaminophen 325 1 tab PO Q6H PRN pain #10 tabs 06/16/23 mg tablet Allergies Allergy/AdvReac Type Severity Reaction Status Date / Time No Known Drug Allergies Allergy Verified 07/09/22 13:00 [facility] Medical History (Updated 06/16/23 @ 11:58 by Duane Montgomery MD) Gastritis ?K29.70 - Gastritis, unspecified, without bleeding (ICD-10) Surgical History (Updated 06/21/22 @ 23:01 by Patti Pedraza MD) History of section ?Z98.891 - History of uterine scar from previous surgery (ICD-10) No significant past surgical history Social History (Updated 06/21/22 @ 23:06 by Patti Pedraza MD) Narrative: Originally from [place], 3 children. Lives with in [place]. Nonsmoker, no ETOH. Smoking Status: Never smoker Do you use any of these nicotine containing products: None Second hand tobacco smoke exposure: No How often do you have a drink containing alcohol: never How often do you have six or more drinks on one occasion: Never AUDIT-C Alcohol total score: 0 Non-prescribed substance use: denies use Exam Narrative: Exam Narrative: Constitutional: Appears well-developed and well-nourished. Alert. Conversant he through hr administrative assistant. Non toxic. HENT: Head: Atraumatic. Nose: Nose normal. Right ear: Mastoid, pinna, canal, TM normal. Left ear: Mastoid, pinna, canal, TM normal. Mouth/Throat: Oral mucosa is clear and moist. no trismus. Pharynx mildly erythema. Tonsils symmetric. No tonsillar enlargement or exudate. Eyes: Conjunctivae normal. EOM normal. Pupils equal, round, and reactive to light. No scleral icterus. Neck: Normal range of motion. Neck supple. No tracheal deviation present. Cardiovascular: Normal rate, regular rhythm. No gallop. No friction rub. No murmur heard. Symmetric radial artery pulses Pulmonary/Chest: Effort normal. No stridor. No respiratory distress. No wheezes. No rales. No rhonchi . No tenderness. Abdominal: Soft. Bowel sounds normal. No distension. He he in no HSM. No mass. No tenderness. No rebound. No guarding. Musculoskeletal: RUE: Normal range of motion. No tenderness. No deformity LUE: Normal range of motion. No tenderness. No deformity RLE: Normal range of motion. No edema. No tenderness. No deformity LLE: Normal range of motion. No edema. No tenderness. No deformity Lymph: No cervical adenopathy. Neurological: Alert and oriented to person, place, and time. Normal strength. CN II-VII intact. No sensory deficit. GCS eye subscore is 4. GCS verbal subscore is 5. GCS motor subscore is 6. Normal coordination Skin: Skin is warm and dry. No rash noted. No pallor. Normal capillary refill. Psychiatric: Normal mood. Normal affect. Const: Vital Signs, click to edit/add: Vital Signs - 24 hr 06/16/23 09:27 Temperature 98 F Pulse Rate [Pulse Oximeter] 87 Respiratory Rate 16 Blood Pressure [Ri ght Upper Arm] 113/82 Pulse Oximetry 98 Oxygen Delivery Me thod Room Air Course Vital Signs Vital signs: Initial Vital Signs Temperature 98 F 06/16/23 09:27 Temperature Source Temporal Artery Scan 06/16/23 09:27 Pulse Rate 87 06/16/23 09:27 Respiratory Rate 16 06/16/23 09:27 Blood Pressure 113/82 06/16/23 09:27 Blood Pressure Mean 92 06/16/23 09:27 Blood Pressure Position Sitting 06/16/23 09:27 Pulse Oximetry 98 06/16/23 09:27 Oxygen Delivery Method Room Air 06/16/23 09:27 Vital Signs Temperature 98 F 06/16/23 09:27 Pulse Rate 87 06/16/23 09:27 Respiratory Rate 16 06/16/23 09:27 Blood Pressure 113/82 06/16/23 09:27 Pulse Oximetry 98 06/16/23 09:27 Oxygen Delivery Method Room Air 06/16/23 09:27 Temperature 98 F 06/16/23 09:27 Pulse Rate 87 06/16/23 09:27 Respiratory Rate 16 06/16/23 09:27 Blood Pressure 113/82 06/16/23 09:27 Pulse Oximetry 98 06/16/23 09:27 Oxygen Delivery Method Room Air 06/16/23 09:27 Medications Administered Medications: Discontinued Medications Generic Name Dose Route Start Last Admin Trade Name Freq PRN Reason Stop Dose Admin Ketorolac Tromethamine 30 mg 06/16/23 10:07 06/16/23 10:12 Ketorolac 30 Mg/Ml Inj IM 06/16/23 10:08 30 mg ONCE ONE Administration Medical Decision Making [facility] Narrative Medical decision making narrative: This patient presents for evaluation of fever, body aches, headache, back pain, as well as nasal congestion, sore throat, and mild cough. This is consistent with an upper respiratory tract infection. She has been exposed to influenza. Viral testing actually negative for influenza a and B, negative for COVID, negative for RSV. No significant exudate pharyngitis on her clinical exam to suggest strep. There is no signs at this point of serious bacterial infection such as OM, RPA, epiglottitis, TECH[employer]IST [employer], strep pharyngitis, pneumonia, sinusitis, meningitis, bacteremia, serious bacterial infection. Given clear lungs, fever curve, no hypoxia and no respiratory distress I do not feel a CXR is indicated at this point as the probability of bacterial pneumonia is very unlikely. There are no gastrointestinal symptoms at this point and no signs of dehydration. Close followup with primary care physician is indicated. Return to ED for fever > 103, worsening achiness or weakness, protracted vomiting, confusion, or other worsening. She is symptomatically improved after Toradol. Recommended that we continue supportive care with rest, fluids, Tylenol or ibuprofen if needed for pain. Patient says that she has not had good control of her symptoms at home with acetaminophen and ibuprofen. I will give her a short prescription for [place] that she can use if she has ongoing achiness or pain that is not controlled with swus-tkc-vnsmcde medications. She will use OTC meds 1st. Discussed sedation precautions with opiate. Provided with a work note so she can stay home until she has been afebrile for at least 24 hours and her aches are improving. Lab Data Labs: Lab Results 06/16/23 Range/Units 09:35 SARS-CoV-2 (PCR) Negative SARS-CoV-2 (Negative) Influenza Type A (PCR) Negative PCR FLU A (Negative) Influenza Type B (PCR) Negative PCR FLU B (Negative) RSV (PCR) Negative PCR RSV (Negative) Discharge Plan Discharge Clinical Impression: Myalgia, Acute viral syndrome Patient Disposition: Home, Self-Care Condition: Stable Instructions: Viral Syndrome (ED), Musculoskeletal Pain (ED) Additional Instructions: As we discussed, please stay home until your fever is gone for 24 hours, and your body aches are improving. Use Tylenol or ibuprofen if needed for achiness. Drink plenty of fluids and stay hydrated. If you have worsening symptoms, especially dehydration or weakness, worsening cough or shortness of breath, come back to the ER right away to be rechecked. Please call the [facility] [phone] schedule an appointment with her regular doctor to evaluate your achy joints. Carly comentamos, qu?dese en casa hasta que la fiebre desaparezca charo 24 horas y donovan martha corporales mejoren. Use Tylenol o ibuprofeno si es necesario para el dolor. Christie muchos l?quidos y mant?ngase hidratado. Si donovan s?ntomas empeoran, especialmente deshidrataci?n o debilidad, tos que empeora o dificultad para respirar, regrese a la billy de emergencias de inmediato para que lo vuelvan a examinar. Llame a la Cl?annabelle [place] al [phone] y programe leopoldo kimi con shahid m?dico habitual para evaluar donovan articulaciones adoloridas. Activity Level: No Restrictions Discharge Diet: Regular Prescriptions: New hydrocodone-acetaminophen 5-325 mg tablet 1 tab PO Q6H PRN (Reason: pain) Qty: 10 0RF No Action No Known Home Medications Follow Up/Referrals: Provider,Not a Local [Primary Care Provider] - Stand Alone Forms: My[facility] Info Instructions
[2023-06-16] MEDS: KETOROLAC 30 MG/ML inj IM (10:12)
[2023-06-16 10:19] LABS: PCR FLU A Negative PCR FLU A (Negative); PCR FLU B Negative PCR FLU B (Negative); PCR RSV Negative PCR RSV (Negative); SARS PCR* Negative SARS-CoV-2 (Negative)
== END 2023-06-16 12:28 | disposition home or self-care (01) ==
PROVIDERS: Emergency Provider Emergency Medicine
DX: M79.10 Myalgia, unspecified site (principal); B34.9 Viral infection, unspecified
CPT/HCPCS: 87631; 96372; 99283; J1885

== ENCOUNTER 2023-06-25 07:33 | Outpatient (CLI) | payer BC, SELFPAY | END 2023-06-25 07:34 | disposition home or self-care (01) | LOC: NFLDREF 07-03 08:50 | PROVIDERS: PCP Family Medicine; Referring Provider Family Medicine; Visit Provider Family Medicine | DX: Z13.1 Encounter for screening for diabetes mellitus (principal); Z13.220 Encounter for screening for lipoid disorders; M25.50 Pain in unspecified joint; R53.83 Other fatigue | CPT/HCPCS: 80053; 80061; 82728; 84443; 86200; 86431 ==

== ENCOUNTER 2023-07-21 07:15 | Outpatient (CLI) | payer BC, SELFPAY ==
--- NOTE | 2023-07-21 08:48 | W.ANESCHARGE ---
Anesthesia Charges Start Date/Time Anesthesia Start Date: 07/21/23 Anesthesia Start Time: 08:08 Stop Date/Time Anesthesia Stop Date: 07/21/23 Anesthesia Stop Time: 08:44
--- NOTE | 2023-07-21 09:17 | W.ANESCHARGE ---
Anesthesia Charges Start Date/Time Anesthesia Start Date: 07/21/23 Anesthesia Start Time: 08:08 Stop Date/Time Anesthesia Stop Date: 07/21/23 Anesthesia Stop Time: 08:44
== END 2023-07-21 07:16 | disposition home or self-care (01) ==
LOC: OP CLINIC 07:23
PROVIDERS: PCP Family Medicine; Visit Provider Surgery
DX: Z12.11 Encounter for screening for malignant neoplasm of colon (principal); K63.5 Polyp of colon; K62.1 Rectal polyp
CPT/HCPCS: 00811; 45385; 88305; T1013; J2704

== ENCOUNTER 2023-09-11 15:11 | Outpatient (CLI) | payer BC, SELFPAY ==
--- NOTE | 2023-09-11 15:20 | CRLHL7_ITS ---
For Patients: As a result of the Century Cures Act, medical imaging exams and procedure reports are released immediately into your electronic medical record. You may view this report before your referring provider. If you have questions, please contact your health care provider. BILATERAL SCREENING MAMMOGRAM WITH COMPUTER-AIDED DETECTION AND TOMOSYNTHESIS TECHNIQUE: CC and MLO views were obtained. These mammographic images have been obtained using full-field digital technique. These mammographic images were interpreted with the benefit of computer-aided detection. Breast Tomosynthesis was used in this interpretation. COMPARISON FILM: Baseline. FINDINGS: The breasts are extremely dense, which lowers the sensitivity of mammography. IMPRESSION: There is no radiographic evidence for malignancy. ASSESSMENT: BI-RADS Category 2: Benign RECOMMENDATION: Routine screening mammogram in 1 year. A lay language report of this examination will be provided to the patient. Gabriel Braswell M.D. Diagnostic Radiologist [email or web address] SP/Dictated by: Gabriel Braswell MD @ 09/14/2023 10:37:00 AM (Electronically Signed)
== END 2023-09-11 15:12 | disposition home or self-care (01) ==
LOC: MAMMO 15:13
PROVIDERS: PCP Family Medicine; Visit Provider Family Medicine
DX: Z12.31 Encounter for screening mammogram for malignant neoplasm of breast (principal); R92.2 Inconclusive mammogram
CPT/HCPCS: 77063; 77067

== ENCOUNTER 2024-03-14 21:34 | Emergency (ER) | payer BC, SELFPAY ==
[2024-03-14 21:51] VITALS: BP 144/74; PULSE 88; RESP 16; TEMP 36.8; O2SAT 98; BMI 32.9
--- NOTE | 2024-03-14 22:15 | ED.BACK ---
HPI - Back Pain/Injury General Chief Complaint: Back Injury/Pain Stated Complaint: back pain Time Seen by Provider: 03/14/24 21:56 History of Present Illness HPI Narrative: This 48-year-old female comes in reporting sudden onset of pain in her left lower back when bending over prior to arrival. She does have some history of prior back pain and does not report any particular injury event or strenuous activity. She states that she had injections of steroid into her hips recently but otherwise is not on any medications. She does not report any pain radiating down either leg. She is Kazakh speaking and requires an art museum docent. Related Data Home Medications ?Medication ?Instructions ?Recorded ?Confirmed famotidine 20 mg tablet 20 mg PO QHS 06/24/23 01/20/24 ibuprofen 200 mg capsule (Advil 400 mg PO .QD PRN 12/28/23 01/20/24 Liqui-Gel) Allergies Allergy/AdvReac Type Severity Reaction Status Date / Time No Known Drug Allergies Allergy Verified 01/20/24 15:07 Review of Systems Status of ROS: Reports: 10 or more systems reviewed and unremarkable except as noted in History and below Narrative: Constitutional: No fevers, no weight gain or loss. Eyes: No discharge. No vision changes. HENT: No congestion, no sore throat, no ear pain. Cardiovascular: No chest pain, no palpitations. Respiratory: No shortness of breath, no wheezes, no cough. Gastrointestinal: No abdominal pain, no vomiting, no diarrhea. Genitourinary: No dysuria, no hematuria. Musculoskeletal: Normal range of motion. Low back pain as described above. Skin: No rashes, no pruritis. Neurological: No dizziness, weakness, sensory change, speech change. Endo/Heme/Allergies: No bruising or bleeding. No polydipsia. Pysch: no suicidality, no anxiety, no insomnia. All other systems reviewed and are negative. [facility] Medical History (Updated 03/14/24 @ 22:19 by Priyank Lemus MD) Hyperlipidemia ?E78.5 - Hyperlipidemia, unspecified (ICD-10) Breast cyst ?N60.09 - Solitary cyst of unspecified breast (ICD-10) Gastritis ?K29.70 - Gastritis, unspecified, without bleeding (ICD-10) Surgical History (Updated 06/24/23 @ 16:46 by Dayron Nguyen MD) Hx of cholecystectomy ?Z90.49 - Acquired absence of other specified parts of digestive tract (ICD-10) History of section ?Z98.891 - History of uterine scar from previous surgery (ICD-10) No significant past surgical history Social History (Updated 06/24/23 @ 14:51 by Shannan Smalls~[facility]) Narrative: Originally from [place], 3 children. Lives with in [place]. Nonsmoker, no ETOH. What is your current living situation?: I presently have a place to live Problems where you live: other Problems where you live details: todo urszula In the past 12 months, utilities in danger of being shut off: no In the past 12 mos, have been you worried that your food would run out before you had money to buy more?: declined to answer In the past 12 mos, the food you bought just didn't last and you didn't have money to buy more?: declined to answer Smoking Status: Never smoker Do you use any of these nicotine containing products: None Second hand tobacco smoke exposure: No How often do you have a drink containing alcohol: never How often do you have six or more drinks on one occasion: Never AUDIT-C Alcohol total score: 0 Non-prescribed substance use: denies use How often does anyone, including family, friends and others, physically hurt you: never How often does anyone, including family, friends and others, insult or talk down to you: never How often does anyone, including family, friends and others, threaten you with harm: never How often does anyone, including family, friends and others, scream or curse at you: never Exam Narrative: Exam Narrative: Constitutional: Well-developed, well-nourished, no acute distress. HEENT: Normocephalic, atraumatic. Neck: Normal range of motion. Nontender. Supple. Heart: Intact distal pulses. Lungs: No chest discomfort. No wheezes, rhonchi, or rales. Abdomen: Nontender. Back: Pain localized in the low back radiating into the left buttock but not down into the leg. Extremities: Normal range of motion. No injury. Skin: Intact. No rash. Warm. No erythema or pallor. Neurologic: No altered sensation. No weakness. Alert and oriented. Psychiatric: No suicidality. No anxiety or depression. No insomnia. Nursing notes and vitals signs are reviewed. Const: Vital Signs, click to edit/add: Vital Signs - 24 hr 03/14/24 21:51 Temperature 98.2 F Pulse Rate [Pulse Oximeter] 88 Respiratory Rate 16 Blood Pressure [Ri ght Upper Arm] 144/74 H Pulse Oximetry 98 Oxygen Delivery Me thod Room Air Course Vital Signs Vital signs: Initial Vital Signs Temperature 98.2 F 03/14/24 21:51 Temperature Source Temporal Artery Scan 03/14/24 21:51 Pulse Rate 88 03/14/24 21:51 Respiratory Rate 16 03/14/24 21:51 Blood Pressure 144/74 H 03/14/24 21:51 Blood Pressure Mean 97 03/14/24 21:51 Blood Pressure Position Sitting 03/14/24 21:51 Pulse Oximetry 98 03/14/24 21:51 Oxygen Delivery Method Room Air 03/14/24 21:51 Vital Signs Temperature 98.2 F 03/14/24 21:51 Pulse Rate 88 03/14/24 21:51 Respiratory Rate 16 03/14/24 21:51 Blood Pressure 144/74 H 03/14/24 21:51 Pulse Oximetry 98 03/14/24 21:51 Oxygen Delivery Method Room Air 03/14/24 21:51 Temperature 98.2 F 03/14/24 21:51 Pulse Rate 88 03/14/24 21:51 Respiratory Rate 16 03/14/24 21:51 Blood Pressure 144/74 H 03/14/24 21:51 Pulse Oximetry 98 03/14/24 21:51 Oxygen Delivery Method Room Air 03/14/24 21:51 MDM - Back Pain/Injury MDM Narrative Medical decision making narrative: This patient comes in with low back pain as described above. There was not a mechanism of injury that requires imaging at this time. The patient received an oral dose of dexamethasone 10 mg and Instymed prescriptions for Toradol and Flexeril. I advised her to follow-up with our spine clinic if not improving. Discharge Plan Discharge Clinical Impression: Strain of lumbar region Patient Disposition: Home, Self-Care Condition: Stable Additional Instructions: Take medications as needed and indicated. Follow-up with spine clinic if not improving. Call [phone] for appointment. Prescriptions: No Action famotidine 20 mg tablet 20 mg PO QHS ibuprofen [Advil Liqui-Gel] 200 mg capsule 400 mg PO .QD PRN Stand Alone Forms: [facility] Info Instructions
[2024-03-14] MEDS: dexAMETHasone 10 MG/ML inj PO (22:23)
== END 2024-03-14 22:55 | disposition home or self-care (01) ==
LOC: ED 22:27
PROVIDERS: Emergency Provider Emergency Medicine Emergency Medical Services
DX: S39.012A Strain of muscle, fascia and tendon of lower back, initial encounter (principal)
CPT/HCPCS: 99283; 99284; J1100